=== PATIENT | male | born 1980 | race Caucasian/White ===

== ENCOUNTER 2021-02-06 12:13 | Outpatient (CLI) | payer BC | END 2021-02-06 12:14 | disposition home or self-care (01) | LOC: BICULT 12:13 | PROVIDERS: ATTEND Nurse Practitioner Family | DX: R10.9 Unspecified abdominal pain (principal); K76.0 Fatty (change of) liver, not elsewhere classified; R16.0 Hepatomegaly, not elsewhere classified | CPT/HCPCS: 76856; 93975 ==